=== PATIENT | female | born 1990 | race Caucasian/White ===

== ENCOUNTER 2017-08-30 14:19 | Emergency (ER) | payer SELFPAY ==
[2017-08-30 15:15] LABS: #Eosinphils 0.1 thou/uL (0.0-0.7); #Lymphocytes 1.8 thou/uL (1.20-3.40); #Monocytes 0.5 thou/uL (0.11-0.59); #Neutrophils 7.5 thou/uL (1.40-6.50); %Basophils 0.4 % (0.0-1.0); %Eosinophils 0.6 % (0.0-10.0); %Lymphocytes 18.4 % (21.0-51.0); %Monocytes 5.1 % (0.0-10.0); %Neutrophils 75.4 % (42.0-75.0); Hemoglobin 12.9 g/dL (12.0-16.0); Mean Corpuscular HGB CONC 35.9 g/dL (32.0-36.0); Mean Corpuscular Hemoglobin 31.5 pg (27.0-31.0); Mean Corpuscular Volume 87.7 fL (78.0-98.0); Platelet Count 204 thou/uL (130-400); RBC Distribution Width 11.3 % (11.5-14.5); Red Blood Cell (RBC) Count 4.09 mill/uL (4.20-5.40)
[2017-08-30 15:24] LABS: ALT (SGPT) 11 U/L (8-55); AST (SGOT) 11 U/L (5-34); Albumin 3.8 g/dL (3.5-5.0); Alkaline Phosphatase 48 U/L (40-150); Anion Gap 12 mmol/L (10-20); BUN (Urea Nitrogen) 6 mg/dL (7.0-18.7); Bilirubin, Total 0.3 mg/dL (0.2-1.2); Calc. Creatinine Clearance 0 mL/min (70-130); Calcium 9.9 mg/dL (7.8-10.44); Carbon Dioxide 23 mmol/L (22-29); Chloride 106 mmol/L (98-107); Estimated GFR-MDRD Greater than 90; Globulin 3.2 g/dL (2.4-3.5); Glucose 83 mg/dL (70-105); Potassium 4.1 mmol/L (3.5-5.1); Sodium 137 mmol/L (136-145)
--- NOTE | 2017-08-30 15:53 | ULT ---
ULTRASOUND WITH DOPPLER DUPLEX VENOUS LOWER EXTREMITY LEFT CPT: 67831 ICD-10-PCS: B54D HISTORY: Left lower extremity pain, erythema. TECHNIQUE: Color flow Doppler, spectral waveform analysis of pulsed Doppler, and noriega-scale imaging with bell sharon and augmentation, were used to evaluate the bilateral common femoral, femoral, popliteal, environmental services technician ior tibial, and superficial femoral, veins; and the proximal portions of the profunda femoral and gre ater saphenous, veins. FINDINGS: There is appropriate compressibility and flow within the imaged deep vein system of the left lower ex tremity. IMPRESSION: No deep vein thrombosis. POS: [facility]
--- NOTE | 2017-08-30 17:32 | CT ---
CT ANGIOGRAM THORAX WITH IV CONTRAST AND 3D RECONSTRUCTIONS: 08/30/17 HISTORY: Chest pain as well as complaints of tightness behind left knee and upper left thigh. COMPARISON: None available. FINDINGS: No filling defects are seen in the pulmonary arteries to suggest a pulmonary embolus. The thoracic aorta is normal in caliber without evidence of an aortic dissection. Residual thymic tis ruthie is seen within the anterior superior mediastinum. The lungs are clear. Osseous structures are intact. IMPRESSION: No CT evidence of pulmonary embolus. POS: [facility]
== END 2017-08-30 18:24 | disposition home or self-care (01) ==
LOC: SCSER 14:19
DX: O99.89 Other specified diseases and conditions complicating pregnancy, childbirth and the puerperium (principal); M79.605 Pain in left leg; Z79.82 Long term (current) use of aspirin; Z3A.16 16 weeks gestation of pregnancy
CPT/HCPCS: 71275; 80053; 85025; 96360; 96361

== ENCOUNTER 2018-02-20 01:07 | Inpatient (IN) | payer SELFPAY ==
[2018-02-20] MEDS ORDERED: Promethazine HCl 25 MG/ML VIAL IM PRN ×2 (01:53→15:10)
[2018-02-20] MEDS ORDERED: Lactated Ringer's 1,000 ML IV PRN (01:53)
[2018-02-20] MEDS ORDERED: Ondansetron PF 4 MG/2 ML Vial IVP PRN ×2 (01:53→15:44)
[2018-02-20] MEDS ORDERED: Lidocaine 1% (PF) 30 ML VIAL SC PRN (01:53)
[2018-02-20] MEDS ORDERED: Methylergonovine 0.2 MG/ML VIAL IM PRN ×2 (01:53→15:44)
[2018-02-20] MEDS ORDERED: NS / Oxytocin 40 units/1000ml 1,000 ML IV PRN (01:53)
[2018-02-20] MEDS ORDERED: Ibuprofen 800 MG TAB PO PRN (01:53)
[2018-02-20] MEDS ORDERED: HYDROcodone/Acetaminophen 5/325 mg Tablet PO PRN ×2 (01:53)
[2018-02-20 02:10] LABS: Mean Corpuscular HGB CONC 34.3 g/dL (32.0-36.0); Mean Corpuscular Hemoglobin 31.2 pg (27.0-31.0); Mean Corpuscular Volume 91.1 fL (78.0-98.0); Mean Platelet Volume 7.5 fL (7.4-10.4); Platelet Count 227 thou/uL (130-400); RBC Distribution Width 12.6 % (11.5-14.5); Red Blood Cell (RBC) Count 3.85 mill/uL (4.20-5.40); White Blood Cell (WBC) Count 11.4 thou/uL (4.8-10.8)
[2018-02-20 02:27] VITALS: BMI 26.5
--- NOTE | 2018-02-20 02:43 | PDOC.LDHP ---
Labor and Delivery H&P Chief complaint: contractions HPI: Faith is a at 40w6d gestation with complaints of contractions which started around 3 hours ago. they are stronger than the contractions she was having earlier in the day, shorter - lasting 20-30 seconds, and anywhere from 2- 5 mins apart. She reports good movement. She denies leaking of fluid. Current gestational age (weeks): 40 (and 6 days) Due date: 02/14/18 Dating criteria: last menstrual period Grav: 3 Para: 1 OB History Details: 2016 SAB 2017 24 week demise. 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 NML pap 2018 Infertility, conceive by IUI Current medications: pre-kip vitamins, other (Aspirin 81mg PO QD) Previous surgical history: none Allergies/Adverse Reactions: Allergies Allergy/AdvReac Type Severity Reaction Status Date / Time No Known Allergies Allergy Verified 02/20/18 02:19 Social history: none - Physical Exam Vital signs reviewed and normal: yes General: NAD, breathing through contractions Heart: RRR Lungs: nonlabored breathing Abdomen: gravid Extremeties: trace edema FHT: category 1 - Vaginal Exam cm dilated: 7 Effacement: 90% Station: 0 - OB Labs Blood type: O RH: positive Antibody Screen: negative HIV: negative RPR: negative HEPSAg: negative 1 hour GCT: negative GBS: negative Urine drug screen: not done Rubella: immune - Assessment L&D Assessment: term patient in labor - Plan Plan: admit to L&D, informed consent obtained
[2018-02-20 02:47] LABS: HBSAg Index 0.17 S/CO (0-0.99); Hep B Surf Ag Non-Reactive S/CO (NonReactive)
[2018-02-20 04:57] LABS: Syphilis Antibody Nonreactive (Nonreactive); Syphilis Antibody Index 0.03 S/CO (<1.00 Non-Reactive)
[2018-02-20] MEDS ORDERED: Butorphanol Tartrate 1 MG/ML VIAL ONE ×2 (10:54→12:34)
--- NOTE | 2018-02-20 11:48 | PDOC.OPDEL ---
OB Operative/Delivery Note Delivery Dr/Surgeon: Elysia Munguia CNM Pre-Delivery Diagnosis: active labor Procedure/Post Delivery Dx: other (with midline episiotomy) Anesthesia: local (prior to episiotomy) - Additional Findings/Plan Placenta delivered: spontaneous Repaired Obstetrical Laceration: episiotomy (2nd degree) Estimated blood loss: 400mL Compilations/Other Findings: heart tones were persistently in the 60s for approximately 5 minutes. David was called to the bedside and additional L&D nurses. Episiomy was sperformed and fetus was delivered. Spontaneous respiratory effort and good tone observed. Cord was clamped and cut. Post delivery plan: routine recovery
[2018-02-20] MEDS ORDERED: Benzocaine/Menthol 20-0.5% 60 ML CAN TOP PRN ×2 (12:16→15:44)
[2018-02-20] MEDS ORDERED: Fentanyl 100 MCG/2 ML VIAL ONE (13:30)
--- NOTE | 2018-02-20 14:08 | PRG ---
DATE OF SERVICE: 02/20/2018 ASSESSMENT TIME OF EVALUATION: 1315 hours. PERSON REQUESTING EVALUATION: Sophyalireza Munguia. INDICATION: This is a patient who was recently (around 1040 hours this morning) from a vaginal with Sophy Munguia. The patient had a second- degree episiotomy that has now been repaired by her. I was called to evaluate the patient because her vaginal pain seemed to be more than the usual. EVALUATION AT BEDSIDE: On inspection by Sophy Munguia, she felt that there was a hematoma on the right vaginal sidewall. I arrived within 3 minutes of being called to LDR 8 and evaluated the patient at bedside. There is a large tense right wall vaginal hematoma that is about 5 x 6 cm. I cannot determine the full extent of this due to the patient's discomfort. I am able to introduce a finger into the vagina, but the right sidewall is abutting the left sidewall and it is tense due to the hematoma. I also cannot fully assess the extent due to the patient's discomfort. I have discussed evaluation under anesthesia (EUA) and possible clot evacuation and over-sewing in the operating room. I have also discussed this with the anesthesiologist automation/controls manager, but currently there is no OR available, in the main OR or in Labor and Delivery. ROOM AVAILABILITY: The OR has just taken a GI bleed to the free OR and that is now occupied. As we do not have any physical room for surgical intervention at this time, including the two Labor and Delivery ORs, we will simply pack the vagina with ice and see if that helps for now. If symptoms continue, then we will continue to wait on the OR until one room, somewhere, is available. I have also offered to do this in the delivery room under conscious sedation, but the policy and procedures of Labor and Delivery prohibit conscious sedation in Labor and Delivery. Therefore, we have no other options for surgical evaluation at this immediate time.... until an OR is free. I have relayed this to the patient and and they understand. DIAGNOSES: 1. Vaginal sidewall laceration. 2. . 3. Status post vaginal . PLAN: 1. Pack the vagina. 2. Stat hematocrit now (unless we move to OR soon). 3. Await OR availability. NOTE: After the surgical exploration is done, or if we just allow for conservative management, we will consider a pelvic CT to make sure that this is not tracking up into the paravaginal space. Job ID: [id number] MTDD
--- NOTE | 2018-02-20 14:15 | PRG ---
DATE OF SERVICE: 02/20/2018 PREOP NOTE TIME: 1345 hours. ASSESSMENT: In brief, I had just been called by the OR that there is a roommate now available in the operating room for vaginal exploration of this possibly expanding hematoma. Once again, our indication for surgical exploration is increasing patient pain and assumed mass based on vaginal palpation that is 5 to 6cm along the right vaginal sidewall. Please see my full prior dictation. PLAN: Our plan is to do a vaginal exploration, clot evacuation, and possible over-sewing of any defect. We will consider a pelvic CT to look for any expanding hematoma beyond our sight postoperatively. Job ID: [id number] MTDD
--- NOTE | 2018-02-20 14:50 | PDOC.PP ---
Post Progress Note Post Day #: 0 Subjective: RN in L&D called to discuss intractable pain despite best efforts to provide pain relief with narcotic pain medicine, ice, rest. Weight Weight 150 lb Result Diagrams: 02/20/18 01:55 Additional Labs: Post Labs Blood Type O POSITIVE 02/20/18 01:55 Hep Bs Antigen Non-Reactive S/CO (NonReactive) 02/20/18 01:55 - Assessment/Plan A: expanding right side-wall hematoma P: consulted with Dr. Jarvis ROMERO hospitalist who agreed with exam findings. Agreed to transfer to OR for further evaluation and evacuation of the hematoma.
[2018-02-20] MEDS ORDERED: Lidocaine 1% PF 5 ML VIAL ONE (15:02)
[2018-02-20] MEDS ORDERED: Ondansetron PF 4 MG/2 ML Vial ONE (15:02)
[2018-02-20] MEDS ORDERED: Succinylcholine Chloride 20 MG/ML 10 ml SYRINGE FS ONE (15:02)
[2018-02-20] MEDS ORDERED: PROPOFOL 200 MG/20 ML VIAL ONE (15:02)
[2018-02-20] MEDS ORDERED: Meperidine HCl/PF 25 MG/ML VIAL SLOW IVP PRN (15:10)
[2018-02-20] MEDS ORDERED: Ondansetron HCl/PF 4 MG/2 ML Vial IVP PRN (15:10)
[2018-02-20] MEDS ORDERED: Promethazine HCl 25 MG/ML VIAL SLOW IVP PRN (15:10)
[2018-02-20] MEDS ORDERED: Meperidine HCl/PF 25 MG/ML VIAL ONE (15:16)
--- NOTE | 2018-02-20 15:26 | OP ---
DATE OF PROCEDURE: 02/20/2018 TIME OF INTERVENTION: Roughly 1410 until 1440 (approximately). OR LOCATION: OR-5 in the main OR. INDICATION: This is a patient, who had a vaginal delivery this morning with an episiotomy, who was noted to have an expanding right vaginal sidewall hematoma. PREOPERATIVE DIAGNOSES: 1. about 3 hours with an expanding right vaginal sidewall hematoma 5 x 6 cm. 2. Episiotomy with repair done previously. POSTOPERATIVE DIAGNOSES: 1. about 3 hours with an expanding right vaginal sidewall hematoma 5 x 6 cm. 2. Episiotomy with repair done previously. 3. Repair of defects as above. PROCEDURE PERFORMED: 1. Right vaginal sidewall evacuation of clot. 2. Right sidewall reapproximation with suture/reconstruction. 3. Reinforcement of the midline episiotomy site. 4. Exam under anesthesia. CLINICAL TRIALS SYSTEMS ADMINISTRATOR: 1. Rayo Pickard MD with Family Medicine Program. 2. Sophy Munguia CNM. FINDINGS: 1. On exam under anesthesia, the patient had a tense 5 x 6 cm right sidewall hematoma that went from approximately 6 o'clock at the vaginal hymenal ring up until the right superior vaginal sulcus/periurethral area. 2. There was clear urine on in and out catheterization. 3. The episiotomy site was intact, but it was reinforced with two stitches that were interrupted of 2-0 Vicryl. 4. Approximately 250 mL of clot evacuated. 5. No extra bleeding noted after repair. 6. Vaginal sidewalls were soft without evidence of re-accumulation of bleed postop. 7. EBL is about 250 mL (clot evacuated). 8. IV fluids is 700 mL crystalloid. 9. Urine output is by Patel, clear urine (see Anesthesia record). 10. There is [address] 11. No evidence of hemodynamic instability or need for blood transfusion. 12. The patient will go to recovery where a postop pelvic CT will be done to ensure that there are no retained clots that have tracked up the perivaginal space. DESCRIPTION OF PROCEDURE: After proper informed consent was explained, she was taken to the OR, where she was successfully placed under general endotracheal anesthesia. She was placed in Flavio stirrups, and all pressure points were adequately padded. Deep hyperflexion and external rotation were avoided in the positioning process. We then turned our attention to the patient's vagina, where a Patel was first placed before any intervention. We did note that there was a tense area in the right vaginal sidewall that was coming to a head and about to spontaneously tear. It was at this point that we entered with Bovie cautery on cut mode and made a pinpoint incision. Finger dissection revealed abundant clots, which were retrieved by digital exploration. We then found that the cavity extended up into the vaginal area and up toward the superior vaginal sulcus. After confirming that all clots were out, we lavaged the wound with sterile saline and any septal syringe. All fluid was removed. We then closed the vaginal defect from the superior sulcus down to the inferior sulcus using 2-0 Vicryl in 2 layers of running locking sutures. No complications were noted. At the end of this repair, there was no evidence of re-formation of hematoma. We then reinforced the midline episiotomy site that had become slightly loose with our manipulation. In order for us to see the hematoma, we used right angle vaginal retractors and this loosened some of the superficial stitches at the midline episiotomy repair. These were reinforced with 2-0 Vicryl interrupted sutures in the midline. After confirming that all counts were correct, we placed the vag pack in the vagina x1, which will stay in place for about 12 hours. She will go to recovery room, and we will order a postop CT just to evaluate for absence of any retained hematoma in the pelvic space. The patient seemed to tolerate the procedure well. To recovery, routine. Job ID: [id number] [facility]
[2018-02-20] MEDS ORDERED: Misoprostol 200 MCG TAB VAG PRN (15:44)
[2018-02-20] MEDS ORDERED: Bisacodyl 10 MG SUPP PR PRN (15:44)
[2018-02-20] MEDS ORDERED: NS / Oxytocin 40 units/1000ml 1,000 ML IV SCH (15:44)
[2018-02-20] MEDS ORDERED: Hydrocortisone 2.5%/Pramoxine 1% CRM 30 GM TUBE TOP PRN (15:44)
[2018-02-20] MEDS ORDERED: Zolpidem Tartrate 5 MG TAB PO PRN (15:44)
[2018-02-20] MEDS ORDERED: Milk Of Magnesia 30 ML UDCUP PO PRN (15:44)
[2018-02-20] MEDS ORDERED: Witch Hazel-Glycerin 1 EACH JAR TOP PRN (15:44)
[2018-02-20 16:38] LABS: Hemoglobin 10.8 g/dL (12.0-16.0); Mean Corpuscular HGB CONC 34.2 g/dL (32.0-36.0); Mean Corpuscular Volume 93.4 fL (78.0-98.0); Mean Platelet Volume 7.4 fL (7.4-10.4); Platelet Count 221 thou/uL (130-400); RBC Distribution Width 12.9 % (11.5-14.5); Red Blood Cell (RBC) Count 3.38 mill/uL (4.20-5.40); White Blood Cell (WBC) Count 11.9 thou/uL (4.8-10.8)
[2018-02-20] MEDS ORDERED: Morphine 2 MG/ML SYRINGE SLOW IVP PRN (16:44)
[2018-02-20 16:59] LABS: ALT (SGPT) 14 U/L (8-55); AST (SGOT) 27 U/L (5-34); Albumin 2.8 g/dL (3.5-5.0); Alkaline Phosphatase 208 U/L (40-150); Anion Gap 11 mmol/L (10-20); BUN (Urea Nitrogen) 7 mg/dL (7.0-18.7); Bilirubin, Total 0.3 mg/dL (0.2-1.2); Calc. Creatinine Clearance 132 mL/min (70-130); Calcium 8.6 mg/dL (7.8-10.44); Carbon Dioxide 22 mmol/L (22-29); Chloride 108 mmol/L (98-107); Estimated GFR-MDRD Greater than 90; Globulin 2.9 g/dL (2.4-3.5); Glucose 113 mg/dL (70-105); Potassium 4.2 mmol/L (3.5-5.1); Protein, Total 5.7 g/dL (6.0-8.3); Sodium 137 mmol/L (136-145)
[2018-02-20] MEDS: Ferrous Sulfate 325 MG TAB PO SCH (17:04)
[2018-02-20] MEDS: HYDROcodone/Acetaminophen 5/325 mg Tablet PO PRN (17:05)
--- NOTE | 2018-02-20 19:03 | PDOC.EVN ---
Event Note - Event Note Event Note: Postop Check (@1900): I have seen the patient at [facility]. She looks well and feels alot better. I discussed the clot evacuation and the procedure. She is aware that the cmaeron and vag pack will be removed tomorrow AM. She has drank her contrast agent. However, as she looks well with stable vitals..I have elected to not do the CT scan as the chance of retained hematoma is low. I did relay to her this decision. I would prefer not to exposure her to radiation if not needd. We will check AM HCT. remova pack and cameron in AM.
[2018-02-20] MEDS: Docusate Calcium (SURFAK) 240 MG CAP PO SCH (21:33)
[2018-02-20] MEDS: Ibuprofen 800 MG TAB PO SCH (21:33)
[2018-02-21] MEDS: HYDROcodone/Acetaminophen 5/325 mg Tablet PO PRN ×5 (00:27→20:41)
[2018-02-21] MEDS ORDERED: Lanolin Ointment 7 GM TUBE TOP PRN (04:38)
--- NOTE | 2018-02-21 06:16 | PDOC.PP ---
Post Progress Note Post Day #: 1 Subjective: She has been lying down in bed for the night, but pain is much better now PO intake tolerated: yes Flatus: yes Ambulation: yes Vital Signs (12 hours) Temp Pulse Resp BP Pulse Ox 02/21/18 04:15 97.7 F 60 18 104/67 02/21/18 00:00 97.7 F 70 18 110/60 02/20/18 20:35 98.8 F 70 16 117/74 98 02/20/18 19:35 98.8 F 77 16 117/66 99 Weight Weight 150 lb - Physical Examination General: NAD Cardiovascular: no m/r/g Respiratory: clear to auscultation bilaterally Abdominal: + bowel sounds, lochia (Vaginal pack was removed by me...intact; cameron out by JEFFREY Pacheco at same time), appropriately TTP Extremities: negative homans (B) (SCDs in place) Neurological: no gross focal deficits Psychiatric: A&Ox3, normal affect Result Diagrams: 02/20/18 16:32 02/20/18 16:32 Additional Labs: Post Labs Blood Type O POSITIVE 02/20/18 01:55 Hep Bs Antigen Non-Reactive S/CO (NonReactive) 02/20/18 01:55 (1) Hematoma of vagina during delivery Code(s): O71.7 - OBSTETRIC HEMATOMA OF PELVIS Status: Acute (2) Perineal laceration involving vaginal muscles Code(s): S31.41XA - LACERATION W/O FOREIGN BODY OF VAGINA AND VULVA, INIT ENCNTR Status: Acute (3) Vaginal delivery Code(s): O80 - ENCOUNTER FOR FULL-TERM UNCOMPLICATED DELIVERY Status: Acute - Assessment/Plan Assessment and plan: 1. PPD1...s/p right vaginal hematoma evacuation. Plan: 1. ambulate today 2. Pain meds prn 3. vag pack now out 4. No active bleed once pack out, but vaginal sidewalls still swollen upon inspection. 5. Cameron removed 6. Await AM HCT (this AM draw done) I again reviewed with her the procedure ffrom yesterday and expected healing time of 6-8 weeks
[2018-02-21 06:53] LABS: Hemoglobin 8.2 g/dL (12.0-16.0); Mean Corpuscular HGB CONC 33.1 g/dL (32.0-36.0); Mean Corpuscular Hemoglobin 31.2 pg (27.0-31.0); Mean Corpuscular Volume 94.4 fL (78.0-98.0); Mean Platelet Volume 7.6 fL (7.4-10.4); Platelet Count 193 thou/uL (130-400); Red Blood Cell (RBC) Count 2.62 mill/uL (4.20-5.40)
[2018-02-21] MEDS: Ibuprofen 800 MG TAB PO SCH ×3 (06:54→21:41)
--- NOTE | 2018-02-21 07:39 | PDOC.EVN ---
Event Note - Event Note Event Note: Lab check: Hct decreased from 35 to 25 as expected due to the hematoma. We evacuated about 250-350ml of clots yesterday.
--- NOTE | 2018-02-21 08:21 | PDOC.PP ---
Post Progress Note Post Day #: 1 Vital Signs (12 hours) Temp Pulse Resp BP Pulse Ox 02/21/18 08:12 98.3 F 66 20 106/62 98 02/21/18 04:15 97.7 F 60 18 104/67 02/21/18 00:00 97.7 F 70 18 110/60 02/20/18 20:35 98.8 F 70 16 117/74 98 Weight Weight 150 lb Result Diagrams: 02/21/18 05:49 02/20/18 16:32 Additional Labs: Post Labs Blood Type O POSITIVE 02/20/18 01:55 Hep Bs Antigen Non-Reactive S/CO (NonReactive) 02/20/18 01:55 - Assessment/Plan Patient is sleeping. Will round at noon and remove the vaginal pack at that time. Hg drop from 12 to 8.2 as expected from vaginal hematoma.
[2018-02-21] MEDS: Ferrous Sulfate 325 MG TAB PO SCH ×2 (08:31→17:45)
[2018-02-21] MEDS: Prenatal Vitamin 1 TAB PO SCH (08:31)
[2018-02-21] MEDS: Docusate Calcium (SURFAK) 240 MG CAP PO SCH ×2 (08:31→21:41)
[2018-02-21] MEDS ORDERED: Adacel (T-DAP) 0.5 ML SYRINGE IM ONE (09:00)
[2018-02-21] MEDS ORDERED: Measles/Mumps/Rubella 10 MCG/0.5 ML VIAL SC ONE (09:00)
[2018-02-21] MEDS ORDERED: Varicella virus, LIVE 0.5 ML VIAL SC ONE (09:00)
[2018-02-22] MEDS: Ibuprofen 800 MG TAB PO SCH ×2 (04:52→14:14)
[2018-02-22 08:11] VITALS: BP 126/78; TEMP 98.3
[2018-02-22] MEDS: Prenatal Vitamin 1 TAB PO SCH (08:41)
[2018-02-22] MEDS: Docusate Calcium (SURFAK) 240 MG CAP PO SCH (08:41)
[2018-02-22] MEDS: Ferrous Sulfate 325 MG TAB PO SCH (08:42)
--- NOTE | 2018-02-22 09:41 | PDOC.PP ---
Post Progress Note Post Day #: 2 Subjective: Patient is doing well. More mobile today without dizzyness. she is passing gas , but has not had a BM yet. She is concerned about the swelling. She also wanted clarification on why she had a hematoma, why she couldn't push the baby out, and if this is going to happen again if she had another baby. PO intake tolerated: yes Flatus: yes Ambulation: yes Vital Signs (12 hours) Temp Pulse Resp BP Pulse Ox 02/22/18 08:11 98.3 F 70 16 126/78 97 Weight Weight 150 lb - Physical Examination General: NAD Cardiovascular: no m/r/g, RRR Respiratory: clear to auscultation bilaterally, non-labored breathing Abdominal: + bowel sounds, lochia (minimal) Fundus firm & at: -2 Extremities: negative homans (B) Skin: no rash Perineum: very edematous. repair is intact. Neurological: no gross focal deficits Psychiatric: A&Ox3, normal affect Result Diagrams: 02/21/18 05:49 02/20/18 16:32 Additional Labs: Post Labs Blood Type O POSITIVE 02/20/18 01:55 Hep Bs Antigen Non-Reactive S/CO (NonReactive) 02/20/18 01:55 - Assessment/Plan A: G3now P2 s/p SVE 2degree epis and Right side wall hematoma with surgical evacuation. Hemodynamically stable. 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
--- NOTE | 2018-02-22 10:23 | PRG ---
DATE OF SERVICE: 02/22/2018 RAIL FLAW DETECTOR OPERATOR FOLLOWUP SUBJECTIVE: day #2. This is the patient who had a vaginal delivery with Sophy Munguia on February 20 with a spontaneous right vaginal sidewall hematoma that required incision and drainage and primary repair in the operating room by me. The patient was evaluated at bedside this morning, after Sophy Munguia has already cleared the patient for discharge. This is the RAIL FLAW DETECTOR OPERATOR followup. The patient states that her pain is much better, although she does still have some "swelling" in the vaginal area. She is able to ambulate and void spontaneously. She has no symptoms of retention. OBJECTIVE: On vital sign assessment, she is afebrile and normotensive. There is no evidence of hypotension. LABORATORY DATA: Last hematocrit value was 25 in the EMR. ASSESSMENT: This is the patient who is status post primary repair of a right vaginal hematoma that was incised and evacuated by me 2 days ago. I discussed with the patient again and the at bedside the procedure performed. The location of her stitches including the episiotomy, right vaginal sidewall, and reapproximation of a spontaneous tear at the left upper quadrant of the labia minora were again reviewed with her. She is to follow up with Sophy Munguia in the usual fashion. Motrin has been given for use p.r.n. I discussed with her that swelling may increase in the first 72 hours (we are at 48 hours now) and then will begin to spontaneously resolve. No acute concerns arose and she will be cleared for discharge by the primary delivering provider. Job ID: [id number]
[2018-02-22] MEDS: HYDROcodone/Acetaminophen 5/325 mg Tablet PO PRN (12:08)
== END 2018-02-22 15:15 | disposition home or self-care (01) | DRG 806 ==
LOC: L&D/OP 01:07 → L&D-LIB 01:39 → 3SW 16:19
PROVIDERS: ADMIT Obstetrics & Gynecology; ATTEND Obstetrics & Gynecology
PROC: 10E0XZZ Delivery of Products of Conception, External Approach (ICD-10-PCS; principal; 2018-02-20)
PROC: 0W8NXZZ Division of Female Perineum, External Approach (ICD-10-PCS; 2018-02-20)
PROC: 0UCG7ZZ Extirpation of Matter from Vagina, Via Natural or Artificial Opening (ICD-10-PCS; 2018-02-20)
PROC: 0KQM0ZZ Repair Perineum Muscle, Open Approach (ICD-10-PCS; 2018-02-20)
PROC: 0UQG7ZZ Repair Vagina, Via Natural or Artificial Opening (ICD-10-PCS; 2018-02-20)
DX: O76 Abnormality in fetal heart rate and rhythm complicating labor and delivery (principal); O71.7 Obstetric hematoma of pelvis; Z37.0 Single live birth; O99.12 Other diseases of the blood and blood-forming organs and certain disorders involving the immune mechanism complicating childbirth; D68.51 Activated protein C resistance; O70.1 Second degree perineal laceration during delivery; Z3A.40 40 weeks gestation of pregnancy; Z14.8 Genetic carrier of other disease; O99.345 Other mental disorders complicating the puerperium; F53.0 Postpartum depression; F43.10 Post-traumatic stress disorder, unspecified
CPT/HCPCS: 36415; 80053; 85027; 86780; 86850; 86900; 86901; 87340; 99285; J0595; J2001; J2175; J2270; J2405; J2704; J3010

== ENCOUNTER 2018-02-24 16:37 | Observation (INO) | payer SELFPAY ==
[2018-02-24 17:07] VITALS: BMI 24.7
[2018-02-24] MEDS ORDERED: Zolpidem Tartrate 5 MG TAB PO PRN (17:29)
[2018-02-24] MEDS ORDERED: Lanolin Ointment 7 GM TUBE TOP PRN (17:29)
[2018-02-24] MEDS ORDERED: Ondansetron PF 4 MG/2 ML Vial IVP PRN (17:29)
[2018-02-24] MEDS ORDERED: Preparation H Ointment 28 GM TUBE PR PRN (17:29)
[2018-02-24] MEDS ORDERED: Bisacodyl 10 MG SUPP PR PRN (17:29)
[2018-02-24] MEDS ORDERED: traMADol HCl 50 MG TAB PO PRN ×2 (17:29)
[2018-02-24] MEDS ORDERED: Benzocaine/Menthol 20-0.5% 60 ML CAN TOP PRN (17:29)
[2018-02-24 18:03] LABS: #Eosinphils 0.3 thou/uL (0.0-0.7); #Lymphocytes 1.7 thou/uL (1.20-3.40); #Monocytes 0.6 thou/uL (0.11-0.59); #Neutrophils 5.6 thou/uL (1.40-6.50); %Basophils 0.6 % (0.0-1.0); %Eosinophils 3.1 % (0.0-10.0); %Lymphocytes 20.8 % (21.0-51.0); %Monocytes 6.7 % (0.0-10.0); %Neutrophils 68.8 % (42.0-75.0); Hemoglobin 9.8 g/dL (12.0-16.0); Mean Corpuscular HGB CONC 34.7 g/dL (32.0-36.0); Mean Corpuscular Hemoglobin 32.8 pg (27.0-31.0); Mean Corpuscular Volume 94.4 fL (78.0-98.0); Mean Platelet Volume 6.6 fL (7.4-10.4); Platelet Count 256 thou/uL (130-400); RBC Distribution Width 13.1 % (11.5-14.5); Red Blood Cell (RBC) Count 2.97 mill/uL (4.20-5.40); White Blood Cell (WBC) Count 8.2 thou/uL (4.8-10.8)
--- NOTE | 2018-02-24 18:15 | HP ---
TIME OF SERVICE: 1730 hours. REASON FOR ADMISSION: Perineal pain, status post spontaneous vaginal delivery and post delivery vulvar hematoma. HISTORY OF PRESENT ILLNESS: Ms. Coker is a 27-year-old, 3, para 2 now, who is status post delivery approximately 4 to 5 days ago. She had a post delivery hematoma that required evacuation and repair in the operating room. She reports today that her pain is increased. She has felt flushed at home, but denies overt fever. She denies vaginal bleeding. She states that her bottom has become somewhat more swollen. She is afraid that the hematoma has recurred. OB AND SENIOR MAINTENANCE MACHINIST HISTORY: As noted. SAB and a 24 week demise, living child 1. The patient is heterozygous for factor V. PAST MEDICAL HISTORY: None except factor V heterozygosity. PAST SURGICAL HISTORY: Repair. ALLERGIES: NONE. MEDICATIONS: Tramadol. SOCIAL HISTORY: Denies tobacco, alcohol, or drug use. FAMILY HISTORY: Noncontributory. REVIEW OF SYSTEMS: Noncontributory. PHYSICAL EXAMINATION: GENERAL: White female, in no acute distress. VITAL SIGNS: Temperature 99.2, pulse 98, respirations 18, blood pressure 142/87. HEENT: Within normal limits. LUNGS: Clear to auscultation bilaterally. HEART: Regular rhythm. ABDOMEN: Soft, nontender. Fundus is firm and appropriate size vulva. The patient has healing laceration on the perineum. On digital exam, she has discoloration and ecchymoses, right greater than left, but no evidence of a abscess or hematoma being present. She is noted to have slight rectocele and this is full of firm stool. The patient reports that she is weary of having a bowel movement. Has not had one post delivery. EXTREMITIES: Without clubbing, cyanosis, or edema. IMPRESSION: Edema and pain, status post vulvar hematoma evacuation. No evidence of recurrence of hematoma or abscess at this time. Cannot rule out early perineal cellulitis, status post repair. PLAN: 1. 23-hour observation on admission. 2. CBC with differential and basic metabolic panel. 3. Milk of magnesia for constipation. 4. Continue sitz baths, ice packs p.r.n. 5. Consider antibiotic therapy pending results of CBC. Job ID: [id number]
[2018-02-24 18:23] LABS: Anion Gap 15 mmol/L (10-20); BUN (Urea Nitrogen) 10 mg/dL (7.0-18.7); Calc. Creatinine Clearance 118 mL/min (70-130); Calcium 9.8 mg/dL (7.8-10.44); Carbon Dioxide 22 mmol/L (22-29); Chloride 104 mmol/L (98-107); Estimated GFR-MDRD Greater than 90; Glucose 79 mg/dL (70-105); Potassium 3.8 mmol/L (3.5-5.1); Sodium 137 mmol/L (136-145)
[2018-02-24] MEDS: Ibuprofen 800 MG TAB PO SCH (20:59)
[2018-02-24] MEDS: Docusate Calcium (SURFAK) 240 MG CAP PO SCH (20:59)
[2018-02-25] MEDS: Ibuprofen 800 MG TAB PO SCH ×2 (06:44→09:16)
--- NOTE | 2018-02-25 07:44 | DIS ---
DATE OF ADMISSION: 02/24/2018 DATE OF DISCHARGE: 02/25/2018 SUMMARY OF HOSPITAL COURSE: The patient was admitted approximately 5 days post vaginal delivery with post delivery hematoma requiring evacuation. She was concerned that she even had a reaccumulation of her hematoma. Upon examination and presentation, she had no evidence of cellulitis or recurrent hematoma, but moderate edema and significant constipation. Laboratory revealed no evidence of infection. The patient was kept in the hospital through the night with good analgesia, including topical analgesia with lidocaine gel. She was administered milk of magnesia, had a bowel movement and feels much better. We will discharge home with the topical lidocaine and to keep schedule followup at [facility] [place]. Job ID: [id number]
[2018-02-25] MEDS: Docusate Calcium (SURFAK) 240 MG CAP PO SCH (08:05)
[2018-02-25 08:23] VITALS: BP 116/77; TEMP 98.4
[2018-02-25] MEDS ORDERED: Milk Of Magnesia 30 ML UDCUP PO SCH ×2 (09:00→21:00)
[2018-02-25] MEDS ORDERED: Prenatal Vitamin 1 TAB PO SCH (09:00)
== END 2018-02-25 09:40 | disposition home or self-care (01) ==
LOC: L&D/OP 16:37 → 3SW 20:00 → INTOOBSV 20:00
PROVIDERS: ADMIT Obstetrics & Gynecology; ATTEND Obstetrics & Gynecology
DX: R10.2 Pelvic and perineal pain (principal); K59.00 Constipation, unspecified; R60.9 Edema, unspecified; D68.2 Hereditary deficiency of other clotting factors
CPT/HCPCS: 36415; 80048; 85025; 99285; G0378